=== PATIENT | male | born 1980 | race African-American/Black ===

== ENCOUNTER → 2020-02-28 | Outpatient (CLI) | payer SELFPAY ==
--- NOTE | 2020-02-28 12:02 | RAD ---
EXAM: CHEST PA LATERAL INDICATION: Reason: COUGH / Spl. Instructions: / History: . TECHNIQUE: PA and lateral views COMPARISON: None FINDINGS: The heart size is normal. The great vessels appear unremarkable. There is no hilar or mediastinal mass. The lungs are clear. There is no pleural effusion or pneumothorax. There are no significant osseous abnormalities. IMPRESSION: No active cardiopulmonary disease. Electronically signed by: Elaine Gore MD (02/28/2020 12:00 PM) [id number]
== END ==
LOC: RAD 09:03
PROVIDERS: ATTEND Physician Assistant Medical
DX: R05 Cough (principal)
CPT/HCPCS: 71046